=== PATIENT | male | born 1945 | race Caucasian/White ===

== ENCOUNTER → 2023-02-22 13:05 | Outpatient (BNVA) | payer OTHER, SELFPAY | PROVIDERS: Visit Provider Podiatrist Foot & Ankle Surgery | DX: T84.84XA Pain due to internal orthopedic prosthetic devices, implants and grafts, initial encounter; Y79.2 Prosthetic and other implants, materials and accessory orthopedic devices associated with adverse incidents | CPT/HCPCS: 73630; 99204 ==

== ENCOUNTER 2023-03-22 05:38 | Day surgery (SDC) | payer OTHER, SELFPAY ==
[2023-03-22] VITALS (7 sets, daily range): BP systolic 115–168; BP diastolic 76–109; PULSE 72–77; RESP 10–17; TEMP 36.3–36.8; O2SAT 95–97
--- NOTE | 2023-03-22 06:00 | P.HPUD_ITS ---
Surgery/Procedure H&P Update DATE OF PROCEDURE: March 22, 2023 DATE H&P PERFORMED: 02/22/23 H&P UPDATE INFORMATION: I have reviewed H&P completed within last 30 days, I have examined patient prior to procedure, No changes to prior documentation and H&P is in [facility] [place] on date indicated CHANGES TO PREVIOUS DOCUMENTATION: None PRIMARY INDICATION FOR PROCEDURE: Painful hardware left foot PLANNED PROCEDURE: Operation Date: 03/22/23 07:00 Proposed Procedures p Deep hardware removal left foot 86733,T84.84XA(Left) - Floyd Ascencio DPM
--- NOTE | 2023-03-22 06:00 | P.OP_ITS ---
Operative Report Date of procedure: March 22, 2023 Pre-op diagnosis: Painful hardware left foot Post-op diagnosis: painful hardware left foot Post-op findings: Prominent hardware with screw head tenting the skin left foot Procedure done: Deep hardware removal left foot. CPT code 08564 Implants: 4-0 nylon Specimens removed/disposition: 1 screw, will be disposed of. Pathology: None Surgeon: Floyd Ascencio DPM Stock Letterer: Mikaela Estimated blood loss: 2 mL 2 IV fluids: 0 Urine output: 0 Complications: None Findings: Prominent hardware, head of screw had backed out and is tenting the skin at the left medial foot at first metatarsal phalangeal joint arthrodesis site. No failed hardware appreciated. Brief History: Pleasant 78-year-old male presents with prominent screw head at the left foot, he has other hardware that is asymptomatic and is only interested in having the problematic screw removed, this is visibly tenting his skin, causes pain with everyday activities and any type of shoe gear he tries to wear. I reviewed at length with the patient, the risks, potential complications, benefits, alternatives, expectations, and typical outcomes associated with the surgery. The risks and potential complications were explained in detail, including but not limited to infection, wound dehiscence or soft tissue complications, bleeding and hematoma, chronic edema, neuritis or nerve damage producing numbness or chronic pain, CRPS, failure to relieve pain or worsening pain, thick / painful / unsightly scar, limited motion / stiffness, malposition, delayed union, malunion, or nonunion, fracture, reaction to implants, anesthetic complications, venous thromboembolism, and deformity recurrence. I discussed the notion of no regrets with the patient as it pertains to complications and outcomes. The patient seemed to understand the nature of the proposed care and required convalescence. They asked appropriate questions, answered to their satisfaction. They are aware no guarantees can be made as to a satisfactory outcome and they understand there may be other possible unforeseen complications or outcomes not listed here that will be treated accordingly if they arise. There were no written or implied guarantees given to the patient. They gave informed consent to proceed. Procedure: Under mild sedation the patient was brought to the operating room and remained on the gurney in supine position. A timeout was performed. Anesthesia was then administered by the anesthesia service. Local anesthesia was injected by myself consisting of 20 cc of 0.5% Marcaine plain in a left male block fashion. Additional 20 cc of Exparel injected subcutaneously at the medial left forefoot in a grid like fashion per expeditionary fighting vehicle crewman recommendation and technique. Well- padded pneumatic tourniquet applied to the left ankle. The left lower extremity was scrubbed, prepped and draped utilizing normal aseptic technique. Left foot was exanguinated with an Esmarch bandage and tourniquet inflated to 250 mmHg. Attention was was directed to the left foot where medial to the first metatarsal head and proximal to the first metatarsal head tenting of the skin was appreciated from a prominent hardware prominent hardware. Incision with a 15 blade directly over the prominence was performed through skin with dissection carried down through subcutaneous tissue to the layer of myofascial and bone utilizing blunt and sharp technique. Care was taken to retract and preserve neurovascular and tendinous structures. All bleeders were ligated and cauterized as necessary. Prominent screw was encountered and backed out in total without failure and passed from the operative field. The incision was ir rigated with copious amounts of sterile skin solution and closed with 4-0 nylon. Incision was dressed with Adaptic, sterile 4 x 4's, Kerlix and Umair wrap, postop shoe was applied to the left foot. Tourniquet was deflated and a prompt hyperemic response was noted to the distal digits of the left foot. Patient tolerated the procedure and anesthesia well and was transferred to the PACU with vital signs stable and vascular status intact. Following a period of postoperative monitoring he will be discharged home and was given at home care instructions, scheduled follow-up and my cell phone number to contact with any postoperative questions or concerns.
[2023-03-22] MEDS: sodium chloride 0.9% 1,000 ML 30 ML IV (06:18)
--- NOTE | 2023-03-22 06:42 | ANES.PREANE2 ---
Pre-Anesthetic Assessment Height/Weight: Height 1.85 m Weight 95.708 kg Temp Pulse Resp BP Pulse Ox O2 Del Method 97.8 F 77 16 168/109 95 Room Air 03/22/23 05:48 03/22/23 05:48 03/22/23 05:48 03/22/23 05:48 03/22/23 05:48 03/22/23 06:09 Preop Diagnosis: Painful hardware left foot Operation Date: 03/22/23 07:00 Proposed Procedures p Deep hardware removal left foot [id number],T84.84XA(Left) - Floyd Ascencio DPM Familial anesthetic complications: None Was Beta Mrailia taken within 24 hours: N/A Was Clonidine taken within 24 hours: N/A Last intake: Intake Last Liquid Date 03/21/23 Last Liquid Time 22:30 Last Solid Date 03/21/23 Last Solid Time 22:00 Social No alcohol and No tobacco Exam alert, oriented x 3, clear to auscultation bilaterally and regular rate & rhythm Airway Mallampati: Class I Dentition: full Anesthetic Plan ASA status: 2 Anesthesia: MAC Risk of > 500 ml blood loss (7ml/kg in children): No Medications/Allergies Home Medications Medication Instructions Recorded Confirmed Last Taken Type prednisone 5 mg tablet 5 mg PO DAILY 02/22/23 03/22/23 03/21/23 History amoxicillin 500 mg-potassium 1 tab PO BID 03/21/23 03/22/23 03/21/23 History clavulanate 125 mg tablet (Augmentin) hydrocodone 5 mg-acetaminophen 325 1 tab PO Q6H PRN pain 7 days #21 03/21/23 Unknown Rx mg tablet tabs ibuprofen 200 mg tablet 200 mg PO Q6H PRN Pain (Scale 03/22/23 03/22/23 03/20/23 History Score 1-3) Allergies Allergy/AdvReac Type Severity Reaction Status Date / Time No Known Allergies Allergy Verified 03/22/23 05:57 Current Medications Generic Name Dose Route Start Last Admin Trade Name Freq PRN Reason Stop Dose Admin Sodium Chloride 1,000 mls @ 30 mls/hr 03/22/23 06:00 03/22/23 06:18 Sodium Chloride 0.9% IV 03/23/23 05:59 30 mls/hr .Q24H NADIYA Administration PFSH Anesthesia Surgical History (Updated 03/21/23 @ 18:14 by Floyd Ascencio DPM) S/P foot surgery Data Anesthesia Cardiac Studies: No Data to Display
[2023-03-22] MEDS: ceFAZolin 2,000 MG in sodium chloride 0.9% (plus) 50 ML 100 MG IV (06:52)
[2023-03-22] MEDS: BUPivacaine liposome 13.3 mg/mL SDV 10 mL 266 MG INJECTION (07:06)
[2023-03-22] MEDS: BUPivacaine 0.5% INJ 10 mL 20 ML INJECTION (07:07)
[2023-03-22] MEDS: HYDROcodone-acetaminophen 5-325 mg Tablet 1 TAB PO (07:54)
--- NOTE | 2023-03-22 13:35 | ANE.PACU2 ---
Inpatient post-anesthesia follow up: Airway intact: Yes Vital signs: Temperature 98 F Pulse Rate 75 Respiratory Rate 16 Blood Pressure 153/99 Pulse Oximetry 96 Oxygen Delivery Me thod Room Air Oxygen Flow Rate 6 Fraction of Inspir ed Oxygen Hydration adequate: Yes Nausea and vomiting: No Pain level: 1 Mental status: Baseline
== END 2023-03-22 08:26 | disposition home or self-care (01) ==
PROVIDERS: PCP Family Medicine; Visit Provider Podiatrist Foot & Ankle Surgery
PROC: (CPT 20680; principal; 2023-03-22 07:00)
DX: T84.84XA Pain due to internal orthopedic prosthetic devices, implants and grafts, initial encounter (principal)
CPT/HCPCS: 20680; C9290; J0690; J1100; J2704; J3010; J3490; J7030

== ENCOUNTER → 2023-04-04 06:52 | Outpatient (BNVA) | payer OTHER, SELFPAY | PROVIDERS: PCP Family Medicine; Visit Provider Podiatrist Foot & Ankle Surgery | DX: Z98.890 Other specified postprocedural states (principal) | CPT/HCPCS: 99024 ==

== ENCOUNTER → 2023-04-23 07:55 | Outpatient (BNVA) | payer MEDICARE, SELFPAY | PROVIDERS: PCP Family Medicine; Visit Provider Nurse Practitioner Family | DX: T25.221A Burn of second degree of right foot, initial encounter (principal); T24.201A Burn of second degree of unspecified site of right lower limb, except ankle and foot, initial encounter; T24.202A Burn of second degree of unspecified site of left lower limb, except ankle and foot, initial encounter; X10.2XXA Contact with fats and cooking oils, initial encounter; I96 Gangrene, not elsewhere classified | CPT/HCPCS: 97597; 97598; 99213; A6212 ==

== ENCOUNTER 2023-04-30 11:45 | Outpatient (CLI) | payer OTHER, MEDICARE, SELFPAY ==
--- NOTE | 2023-04-30 11:50 | USCV_ITS ---
Frederick Bee Age: 78 Gender: M : 1945 Exam Date: 04/30/2023 12:01 Ordering Phys: Ugo Tan Technologist: CT Exam Location: [facility] [place]_ Indication: CAD BP: 155 / 87 HR: 69 Rhythm: Sinus Technical Quality: Adequate MEASUREMENTS (Male / Female) Normal Values 2D ECHO LVOT Diameter 2.3 cm LV Ejection Fraction MOD 2C 40.3 % LV Ejection Fraction 2C AL 41.1 % LA Diameter 4.0 cm Aorta at Sinotubular Diameter 3.1 cm M-MODE Aortic Annulus Diameter 3.6 cm LA Ao Ratio MM 1.2 MV E Point Septal Separation 0.6 cm DOPPLER AV Peak Velocity 103.0 cm/s LVOT Peak Velocity 81.0 cm/s AV Area Cont Eq vti 4.8 cm squared AV Area Cont Eq pk 3.4 cm squared MV E' Velocity 8.0 cm/s TR Peak Velocity 162.7 cm/s TR Peak Gradient 10.6 mmHg TV Peak E Velocity 72.0 cm/s Right Atrial Pressure 3.0 mmHg Pulmonary Artery Systolic Pressu 13.6 mmHg PV Peak Velocity 99.0 cm/s FINDINGS Left Ventricle Left ventricle is normal in size. LV systolic function is mildly reduced with EF of 45 to 50%. Mild global hypokinesis. Grade 1 diastolic dysfunction Right Ventricle Normal in size and function Right Atrium Normal in size Left Atrium Dilated Mitral Valve Structurally normal mitral valve. Mild mitral regurgitation. Aortic Valve Aortic valve is thickened. No significant stenosis or regurgitation seen. Tricuspid Valve Mild tricuspid regurgitation. Pulmonary artery systolic pressure is normal. Pulmonic Valve Not well visualized. Mild pulmonic regurgitation. Pericardium Normal Aorta Normal in size IVC Appears to be normal CONCLUSIONS LV systolic function is mildly reduced with EF of 45 to 50%. Grade 1 diastolic dysfunction. Left atrial dilation. Mild mitral regurgitation. Mild tricuspid regurgitation Mild pulmonic regurgitation No comparison studies are available. Mikael Barragan MD (Electronically Signed) Final Date: 15 May 2023 17:11 S
== END 2023-04-30 11:46 | disposition home or self-care (01) ==
LOC: RAD 11:46
PROVIDERS: PCP Family Medicine; Visit Provider Chiropractor
DX: I25.10 Atherosclerotic heart disease of native coronary artery without angina pectoris (principal); I25.9 Chronic ischemic heart disease, unspecified; I08.8 Other rheumatic multiple valve diseases; I96 Gangrene, not elsewhere classified; T25.221D Burn of second degree of right foot, subsequent encounter; T24.201D Burn of second degree of unspecified site of right lower limb, except ankle and foot, subsequent encounter; X10.2XXD Contact with fats and cooking oils, subsequent encounter
CPT/HCPCS: 93306; 97597; 97598; A6220

== ENCOUNTER → 2023-05-07 08:27 | Outpatient (BNVA) | payer MEDICARE, SELFPAY | PROVIDERS: PCP Family Medicine; Visit Provider Nurse Practitioner Family | DX: I96 Gangrene, not elsewhere classified (principal); T25.221D Burn of second degree of right foot, subsequent encounter; X10.2XXD Contact with fats and cooking oils, subsequent encounter; Z09 Encounter for follow-up examination after completed treatment for conditions other than malignant neoplasm | CPT/HCPCS: 11042 ==

== ENCOUNTER → 2023-05-08 11:30 | Outpatient (BNVA) | payer MEDICARE, SELFPAY | PROVIDERS: PCP Family Medicine; Referring Provider Family Medicine; Visit Provider Internal Medicine | DX: M81.0 Age-related osteoporosis without current pathological fracture (principal); E55.9 Vitamin D deficiency, unspecified | CPT/HCPCS: 99204 ==

== ENCOUNTER → 2023-05-14 08:47 | Outpatient (BNVA) | payer MEDICARE, SELFPAY | PROVIDERS: PCP Family Medicine; Visit Provider Nurse Practitioner Family | DX: Z09 Encounter for follow-up examination after completed treatment for conditions other than malignant neoplasm (principal); Z87.2 Personal history of diseases of the skin and subcutaneous tissue | CPT/HCPCS: 99212; A6219 ==

== ENCOUNTER 2023-06-10 08:43 | Oncology outpatient (recurring) (ONCR) | payer MEDICARE, SELFPAY ==
[2023-06-10 09:18] VITALS: BP 132/87; PULSE 79; RESP 18; TEMP 36.6; O2SAT 96
[2023-06-10] MEDS: denosumab 60 mg SDV SUBCUT (09:21)
[2023-06-10 09:51] LABS: Albumin Level 3.8 g/dL (3.5-5.2); Calcium 8.9 mg/dL (8.5-10.5)
[2023-06-10 17:49] LABS: 25 Hydroxy Vitamin D 27 ng/mL (30-100)
== END 2023-06-20 23:59 | disposition home or self-care (01) ==
PROVIDERS: Internal Medicine; PCP Family Medicine; Visit Provider Family Medicine
DX: M81.0 Age-related osteoporosis without current pathological fracture (principal); Z53.9 Procedure and treatment not carried out, unspecified reason
CPT/HCPCS: 36415; 82040; 82306; 82310; 82565; 96372; J0897

== ENCOUNTER → 2023-09-17 09:49 | Outpatient (BNVA) | payer OTHER, SELFPAY | PROVIDERS: PCP Family Medicine; Visit Provider Internal Medicine Rheumatology | DX: Z79.899 Other long term (current) drug therapy (principal); M06.9 Rheumatoid arthritis, unspecified; M19.041 Primary osteoarthritis, right hand; M05.79 Rheumatoid arthritis with rheumatoid factor of multiple sites without organ or systems involvement | CPT/HCPCS: 73130; 99204 ==

== ENCOUNTER → 2023-11-05 12:27 | Outpatient (BNVA) | payer OTHER, SELFPAY | PROVIDERS: PCP Family Medicine; Visit Provider Internal Medicine | DX: M81.0 Age-related osteoporosis without current pathological fracture (principal); E55.9 Vitamin D deficiency, unspecified | CPT/HCPCS: 80053; 82306; 99214 ==

== ENCOUNTER 2023-12-10 09:43 | Oncology outpatient (recurring) (ONCR) | payer OTHER, SELFPAY ==
[2023-12-10 10:38] VITALS: BP 176/99; PULSE 81; RESP 16; TEMP 36.4; O2SAT 98
[2023-12-10] MEDS: sodium chloride 0.9% 250 ML 75 ML IV (11:19)
[2023-12-10] MEDS: acetaminophen 325 mg Tablet 650 MG PO (11:21)
[2023-12-10] MEDS: methylPREDNISolone sod succ 125 mg/2 mL INJ IVP (11:21)
[2023-12-10 12:00] VITALS: BP 165/98; PULSE 77; RESP 16; TEMP 36.4; O2SAT 98
[2023-12-10] MEDS: rituximab-abbs 1,000 MG in sodium chloride 0.9% 500 ML 70 MG IV (12:00)
[2023-12-10 12:30] VITALS: BP 160/90; PULSE 70; RESP 16; TEMP 36.6; O2SAT 97
[2023-12-10 13:00] VITALS: BP 162/92; PULSE 76; RESP 16; TEMP 36.4; O2SAT 94
[2023-12-10 13:30] VITALS: BP 157/87; PULSE 85; RESP 16; TEMP 36.4; O2SAT 95
[2023-12-10] MEDS: denosumab 60 mg SDV SUBCUT (15:20)
[2023-12-10 15:25] VITALS: BP 169/99; PULSE 85; RESP 16; TEMP 36.4; O2SAT 94
== END 2023-12-10 23:59 | disposition home or self-care (01) ==
PROVIDERS: PCP Family Medicine; Visit Provider Family Medicine
DX: M05.89 Other rheumatoid arthritis with rheumatoid factor of multiple sites (principal); Z79.899 Other long term (current) drug therapy; M81.0 Age-related osteoporosis without current pathological fracture
CPT/HCPCS: 96372; 96375; 96413; 96415; J0897; J2919; J7040; J7050; Q5115

== ENCOUNTER 2023-12-25 07:59 | Oncology outpatient (recurring) (ONCR) | payer OTHER, SELFPAY ==
[2023-12-25 08:12] VITALS: BP 148/85; PULSE 92; RESP 18; TEMP 36.3; O2SAT 93
[2023-12-25] MEDS: acetaminophen 325 mg Tablet 650 MG PO (08:50)
[2023-12-25] MEDS: diphenhydrAMINE 50 mg/mL SDV 1mL 25 MG IVP (08:52)
[2023-12-25] MEDS: sodium chloride 0.9% 250 ML 75 ML IV (08:54)
[2023-12-25] MEDS: methylPREDNISolone sod succ 125 mg/2 mL INJ IVP (08:54)
[2023-12-25] MEDS: rituximab-abbs 1,000 MG in sodium chloride 0.9% 500 ML 200 MG IV (09:13)
[2023-12-25 09:37] LABS: Basophils # 0.1 10^3/uL (0.0-0.1); Eosinophils # 0.4 10^3/uL (0.0-0.8); Lymphocytes # 1.9 10^3/uL (0.8-4.8); Lymphocytes % 38.5 %; Mean Corpuscular Volume 90.6 fl (82-101); Mean Platelet Volume 10.2 fL (7.4-10.4); Monocytes # 0.7 10^3/uL (0.2-0.9); Neutrophils # 1.91 10^3/uL (1.8-7.7); Neutrophils % 38.3 %; Nucleated Red Blood Cells % 0 %; Platelet Count 227 10^3/cmm (157-399); Red Blood Count 5.41 10^6/uL (3.85-5.65); Red Cell Distribution Width 13.4 % (12.1-15.1); White Blood Count 4.99 10^3/uL (3.29-11.43)
[2023-12-25 09:40] LABS: Erythrocyte Sedimentation Rate 33 mm/hr (0-10)
[2023-12-25 09:50] VITALS: BP 148/89; PULSE 74; RESP 18; TEMP 36.8; O2SAT 97
[2023-12-25 09:54] LABS: Alanine Aminotransferase 20 U/L (0-41); Albumin Level 3.8 g/dL (3.5-5.2); Alkaline Phosphatase 83 U/L (40-130); C Reactive Protein 17.7 mg/L (0.0-4.9); Globulin 2.9 g/dL (1.3-4.6); Total Bilirubin 0.5 mg/dL (0.15-1.2); Total Protein 6.7 g/dL (6.6-8.7)
[2023-12-25 09:56] LABS: Aspartate Amino Transferase 30 U/L (0-40)
[2023-12-25 10:20] VITALS: BP 160/85; PULSE 94; RESP 18; TEMP 36.6; O2SAT 96
[2023-12-25 10:50] VITALS: BP 138/89; PULSE 71; RESP 18; TEMP 36.6; O2SAT 95
[2023-12-25 13:05] VITALS: BP 164/87; PULSE 87; RESP 18; TEMP 36.4; O2SAT 94
== END 2023-12-25 23:59 | disposition home or self-care (01) ==
PROVIDERS: Internal Medicine Rheumatology; PCP Family Medicine; Visit Provider Family Medicine
DX: M05.79 Rheumatoid arthritis with rheumatoid factor of multiple sites without organ or systems involvement; Z79.899 Other long term (current) drug therapy
CPT/HCPCS: 80076; 82565; 85025; 85651; 86140; 96375; 96413; 96415; J1200; J2919; J7040; J7050; Q5115

== ENCOUNTER → 2024-01-22 11:16 | Outpatient (BNVA) | payer OTHER, SELFPAY | PROVIDERS: PCP Family Medicine; Visit Provider Internal Medicine Rheumatology | DX: M05.79 Rheumatoid arthritis with rheumatoid factor of multiple sites without organ or systems involvement (principal); Z79.899 Other long term (current) drug therapy; Z71.85 Encounter for immunization safety counseling; Z11.1 Encounter for screening for respiratory tuberculosis; Z11.59 Encounter for screening for other viral diseases | CPT/HCPCS: 99214 ==

== ENCOUNTER 2024-04-23 11:45 | Outpatient (CLI) | payer OTHER, SELFPAY ==
[2024-04-23 11:49] VITALS: BMI 29.2
--- NOTE | 2024-04-23 11:50 | ECG_ITS ---
[facility]: 2024-[facility]23 Pat Name: Frederick Bee Department: Room: Gender: Male Design Supervisor: : 1945 Requested By: HOOD Smith Order Number: [id number] Kaushal MD: LU CROOKS Interpretive Statements Lung unchanged pre/post procedure; Intraprocedure shortess of breath; Symptoms resoled by discharge EXERCISE DATA: The patient was exercised by [place] protocol. Baseline heart rate was 84 beats per minute. Baseline blood pressure was 143/103 millimeters of mercury. Target heart rate was 143 beats per minute. Maximum heart rate achieved was 123 which was 86% of the target heart rate. Maximum blood pressure was 174/112 millimeters of mercury. Total exercise time was 3 minutes 44 seconds maximum METs achieved was 7.0 maximum VO2 was 24.5 the reason for ending the test was [completion of the protocol]. The patient complained of shortness of breath during the stress test, which then resolved at the end of the test. ELECTROCARDIOGRAM: BASELINE: Showed sinus rhythm, left axis, frequent PVCs no significant ST-T changes at the baseline noted. EXERCISE: At the peak exercise level, No significant ST-T changes suggestive of ischemia noted. Frequent PVCs were noted RECOVERY: During the recovery period, heart rate dropped appropriately. No significant ST-T changes in the recovery suggestive of ischemia noted. CONCLUSION: 1. Exercise capacity poor. 2. Heart rate response was tachycardic 3. Blood pressure response was [appropriate]. 4. Symptoms not suggestive of ischemia. 5. Electrocardiogram portion of the stress test was not suggestive of ischemia. 6. Please note that due to poor exercise tolerance and and her achievements of METs specificity and sensitivity of the EKG portion of stress test will be low. Electronically Signed On 04-27-2024 21:45:40 INSTRUCTOR OF SPANISH by LU CROOKS [email or web address]
[2024-04-23 12:22] VITALS: BP 166/73; PULSE 94
== END 2024-04-23 11:46 | disposition home or self-care (01) ==
LOC: CDL 11:46
PROVIDERS: PCP Family Medicine; Visit Provider Nurse Practitioner Family
DX: R06.02 Shortness of breath (principal)
CPT/HCPCS: 93017

== ENCOUNTER → 2024-05-28 12:53 | Outpatient (BNVA) | payer MEDICARE, SELFPAY | PROVIDERS: PCP Family Medicine; Visit Provider Internal Medicine | DX: E55.9 Vitamin D deficiency, unspecified (principal); E11.9 Type 2 diabetes mellitus without complications | CPT/HCPCS: 80053; 82306 ==

== ENCOUNTER 2024-06-09 06:59 | Oncology outpatient (recurring) (ONCR) | payer MEDICARE, SELFPAY ==
[2024-06-09 07:19] VITALS: BP 153/89; PULSE 76; TEMP 36.2
[2024-06-09] MEDS: sodium chloride 0.9% 250 ML 75 ML IV (07:30)
[2024-06-09] MEDS: acetaminophen 325 mg Tablet 650 MG PO (07:30)
[2024-06-09] MEDS: methylPREDNISolone sod succ 125 mg/2 mL INJ IVP (07:35)
[2024-06-09] MEDS: diphenhydrAMINE 50 mg/mL SDV 1mL 25 MG IVP (07:35)
[2024-06-09] MEDS: rituximab-abbs 1,000 MG in sodium chloride 0.9% 500 ML 65 MG IV (08:10)
[2024-06-09 08:24] LABS: Basophils % 0.6 %; Eosinophils # 0.3 10^3/uL (0.0-0.8); Eosinophils % 5.2 %; Hematocrit 47.4 % (37-53); Lymphocytes # 2.3 10^3/uL (0.8-4.8); Lymphocytes % 34.6 %; Mean Corpuscular HGB Conc 32.3 g/dL (30-55); Mean Corpuscular Hemoglobin 28.8 pg (27-33); Mean Corpuscular Volume 89.1 fl (82-101); Mean Platelet Volume 9.6 fL (7.4-10.4); Monocytes # 0.9 10^3/uL (0.2-0.9); Monocytes % 13.1 %; Neutrophils # 3.03 10^3/uL (1.8-7.7); Neutrophils % 46.3 %; Nucleated Red Blood Cells % 0 %; Platelet Count 185 10^3/cmm (157-399); Red Blood Count 5.32 10^6/uL (3.85-5.65); Red Cell Distribution Width 14.5 % (12.1-15.1); White Blood Count 6.54 10^3/uL (3.29-11.43)
[2024-06-09 09:15] VITALS: BP 153/89; PULSE 76; RESP 16; TEMP 36.6; O2SAT 96
[2024-06-09 09:45] VITALS: BP 165/87; PULSE 71; RESP 16; TEMP 36.3; O2SAT 96
[2024-06-09 09:45] LABS: Erythrocyte Sedimentation Rate 13 mm/hr (0-10)
[2024-06-09 11:20] VITALS: BP 160/86; PULSE 73; RESP 16; TEMP 36.4; O2SAT 95
== END 2024-06-19 23:59 | disposition home or self-care (01) ==
PROVIDERS: Internal Medicine Rheumatology; PCP Family Medicine; Visit Provider Internal Medicine
DX: M05.89 Other rheumatoid arthritis with rheumatoid factor of multiple sites (principal); Z79.899 Other long term (current) drug therapy
CPT/HCPCS: 85025; 85651; 96375; 96413; 96415; J1200; J2919; J7040; J7050; Q5115

== ENCOUNTER 2024-06-23 07:27 | Oncology outpatient (recurring) (ONCR) | payer OTHER, SELFPAY ==
[2024-06-23 08:02] VITALS: BP 143/84; PULSE 86; RESP 17; TEMP 36.7; O2SAT 94
[2024-06-23] MEDS: sodium chloride 0.9% 250 ML 75 ML IV (08:37)
[2024-06-23] MEDS: acetaminophen 325 mg Tablet 650 MG PO (08:38)
[2024-06-23] MEDS: diphenhydrAMINE 50 mg/mL SDV 1mL 25 MG IVP (08:42)
[2024-06-23] MEDS: methylPREDNISolone sod succ 125 mg/2 mL INJ IVP (08:46)
[2024-06-23] MEDS: rituximab-pvvr 1,000 MG in sodium chloride 0.9% 500 ML 65 MG IV (09:28)
[2024-06-23 10:05] VITALS: BP 178/88; PULSE 73; RESP 18; TEMP 36.6; O2SAT 95
[2024-06-23 10:35] VITALS: BP 173/80; PULSE 86; RESP 18; TEMP 37; O2SAT 95
[2024-06-23 11:10] VITALS: BP 185/100; PULSE 86; RESP 18; TEMP 37.1; O2SAT 96
[2024-06-23 13:00] VITALS: BP 178/96; PULSE 86; RESP 18; TEMP 36.6; O2SAT 96
== END 2024-07-20 23:59 | disposition home or self-care (01) ==
PROVIDERS: PCP Family Medicine; Visit Provider Internal Medicine
DX: M05.89 Other rheumatoid arthritis with rheumatoid factor of multiple sites (principal); Z79.899 Other long term (current) drug therapy
CPT/HCPCS: 96375; 96413; 96417; J1200; J2919; J7040; J7050; J9999; Q5119

== ENCOUNTER → 2024-07-22 11:00 | Outpatient (BNVA) | payer OTHER, SELFPAY | PROVIDERS: PCP Family Medicine; Visit Provider Internal Medicine Rheumatology | DX: M05.79 Rheumatoid arthritis with rheumatoid factor of multiple sites without organ or systems involvement (principal); Z79.899 Other long term (current) drug therapy; Z71.85 Encounter for immunization safety counseling | CPT/HCPCS: 99214 ==

== ENCOUNTER 2024-09-11 08:48 | Oncology outpatient (recurring) (ONCR) | payer MEDICARE, SELFPAY ==
[2024-09-11] MEDS: denosumab 60 mg SDV SUBCUT (09:20)
[2024-09-11 09:49] VITALS: BP 148/80; PULSE 87; RESP 18; TEMP 36.3; O2SAT 93
== END 2024-09-19 23:59 | disposition home or self-care (01) ==
LOC: ONCMED 08:48
PROVIDERS: PCP Family Medicine; Visit Provider Internal Medicine
DX: M05.89 Other rheumatoid arthritis with rheumatoid factor of multiple sites (principal); Z79.899 Other long term (current) drug therapy
CPT/HCPCS: 96372; J0897

== ENCOUNTER 2024-09-29 08:18 | Outpatient (CLI) | payer OTHER, SELFPAY ==
--- NOTE | 2024-09-29 08:24 | CT_ITS ---
WS: [id number] CT chest w con* [id number] HISTORY: PULMONARY NODULE R UPPER LOBE TECHNIQUE: Axial imaging performed through the thorax. Coronal and sagittal reformats are submitted. All CT scans at [facility] use at least one of these dose optimization techniques: automated exposure control; mA and/or kV adjustment per patient size (includes targeted exams where dose is matched to clinical indication); or iterative reconstruction. CONTRAST: Omnipaque 350; 100 mL IV. DLP: 491.44 mGy.cm COMPARISON: None available. Lungs and central airway: Lung volumes are decreased. Moderate changes of pulmonary fibrosis. There is honeycombing and traction bronchiectasis, multilobar and bilateral. No identifiable nodule is noted in the RIGHT upper lobe as indicated by the history. No prior studies available for comparison. No endobronchial lesions. Pleura: Normal. No pleural effusion. Heart and pericardium: Normal size heart with no pericardial effusion. Mediastinum and odessa: No mediastinum or hilar adenopathy. Mild circumferential esophageal wall thickening. Vessels: Mild atherosclerosis aorta. Pulmonary artery is slightly enlarged. Chest wall and lower neck: No soft tissue masses. Upper abdomen: Hepatic flexure is superimposed between the liver and the diaphragm. Small hiatal hernia. Osseous structures: Mild anterior wedging of T7. CT/CT chest w con* [id number] IMPRESSION: 1. No prior studies available for comparison. No report indicating the locatio n of the RIGHT upper lobe pulmonary nodule or size. 2. Decreased lung volumes with changes of UIP. No nodule or mass identified. 3. No mediastinal or hilar pathologically enlarged lymph nodes. 4. Atherosclerosis aorta.
[2024-09-29] MEDS: iohexol 350 mg/mL 500 mL Btl (per mL) IV (08:49)
== END 2024-09-29 08:19 | disposition home or self-care (01) ==
PROVIDERS: PCP Family Medicine; Visit Provider Family Medicine
DX: Z01.89 Encounter for other specified special examinations (principal); R91.8 Other nonspecific abnormal finding of lung field; I70.0 Atherosclerosis of aorta; J84.10 Pulmonary fibrosis, unspecified; J47.9 Bronchiectasis, uncomplicated; R93.89 Abnormal findings on diagnostic imaging of other specified body structures; K44.9 Diaphragmatic hernia without obstruction or gangrene; M48.54XA Collapsed vertebra, not elsewhere classified, thoracic region, initial encounter for fracture
CPT/HCPCS: 71260

== ENCOUNTER → 2024-10-12 09:30 | Outpatient (BNVA) | payer OTHER, SELFPAY | PROVIDERS: PCP Family Medicine; Visit Provider Podiatrist Foot & Ankle Surgery | DX: Q82.8 Other specified congenital malformations of skin (principal); L60.3 Nail dystrophy | CPT/HCPCS: 17110; 99213 ==

== ENCOUNTER 2024-11-24 08:04 | Oncology outpatient (recurring) (ONCR) | payer OTHER, SELFPAY ==
[2024-11-24] MEDS: denosumab 60 mg SDV SUBCUT (08:50)
--- NOTE | 2024-11-24 08:53 | PC.NURSE ---
Patient was scheduled for Rituximab but wanted to reschedule next month due to other appointments.mm
== END 2024-12-20 23:59 | disposition home or self-care (01) ==
PROVIDERS: PCP Family Medicine; Visit Provider Internal Medicine
DX: M05.89 Other rheumatoid arthritis with rheumatoid factor of multiple sites (principal); Z79.899 Other long term (current) drug therapy
CPT/HCPCS: 96372; J0897

== ENCOUNTER 2024-12-01 15:06 | Outpatient (CLI) | payer MEDICARE, SELFPAY ==
--- NOTE | 2024-12-01 15:30 | XR_ITS ---
WS: [id number] SCREENING DEXA SCAN i'mma CLINICAL INFORMATION: Osteoporosis COMPARISON: None. FINDINGS: The L1-L4 bone mineral density measures 1.289 g/cm2. This corresponds to a T score score of 0.6 and Z score of 0.6. Left forearm bone mineral density measures 0.75. This corresponds to a T score of -2.5 and Z score of -1.3. XR/XR DEXA axial skeleton* [id number] IMPRESSION: Normal bone mineralization lumbar spine. Osteoporosis LEFT forearm
== END 2024-12-01 15:07 | disposition home or self-care (01) ==
LOC: RAD 15:07
PROVIDERS: PCP Family Medicine; Visit Provider Internal Medicine
DX: Z13.820 Encounter for screening for osteoporosis (principal); M81.0 Age-related osteoporosis without current pathological fracture; E55.9 Vitamin D deficiency, unspecified
CPT/HCPCS: 77080

== ENCOUNTER → 2024-12-14 09:23 | Outpatient (BNVA) | payer OTHER, SELFPAY | PROVIDERS: PCP Family Medicine; Visit Provider Podiatrist Foot & Ankle Surgery | DX: L84 Corns and callosities (principal); Q82.8 Other specified congenital malformations of skin; L60.3 Nail dystrophy | CPT/HCPCS: 17110 ==

== ENCOUNTER → 2025-01-13 10:02 | Outpatient (BNVA) | payer OTHER, SELFPAY | PROVIDERS: PCP Family Medicine; Visit Provider Internal Medicine Rheumatology | DX: M05.79 Rheumatoid arthritis with rheumatoid factor of multiple sites without organ or systems involvement (principal); Z79.899 Other long term (current) drug therapy; Z71.85 Encounter for immunization safety counseling; M81.0 Age-related osteoporosis without current pathological fracture | CPT/HCPCS: 99214 ==

== ENCOUNTER → 2025-03-08 10:00 | Outpatient (BNVA) | payer OTHER, SELFPAY | PROVIDERS: PCP Family Medicine; Visit Provider Podiatrist Foot & Ankle Surgery | DX: Q82.8 Other specified congenital malformations of skin (principal); L84 Corns and callosities; L60.3 Nail dystrophy | CPT/HCPCS: 17110; 99213 ==

== ENCOUNTER 2025-03-25 13:50 | Emergency (ER) | payer OTHER, SELFPAY ==
[2025-03-25 13:52] VITALS: BP 192/105; PULSE 94; RESP 18; TEMP 36.6; O2SAT 91; BMI 28.7
--- NOTE | 2025-03-25 14:28 | CT_ITS ---
WS: [id number] CT HEAD TECHNIQUE: Noncontrast CT of the head obtained from the skullbase to the vertex. CLINICAL INFORMATION: Closed head injury nausea dizziness COMPARISON: None. DLP: 1066.[address] scans at [facility] use at least one of these dose optimization techniques: automated exposure control; mA and/or kV adjustment per patient size (includes targeted exams where dose is matched to clinical indication); or iterative reconstruction. FINDINGS: No evidence of intracranial hemorrhage or mass effect. Ventricular system and basal cisterns are patent. Moderate small vessel changes with moderate parenchymal volume loss. No extra-axial fluid collections. No evidence of mass or mass effect. Vascular calcification. Mild mucosal thickening in the paranasal sinuses. Mastoid air cells are well aerated. CT/CT head wo con* [id number] IMPRESSION: 1. No evidence of intracranial hemorrhage or mass effect. 2. Intracranial vascular calcification. 3. No acute intracranial findings.
--- NOTE | 2025-03-25 14:55 | XR_ITS ---
WS: [id number] Exam: XR sacrum coccyx min 2V [id number] Date/Time of Exam: 03/25/2025 3:02 PM Reason For Exam: Trauma No obvious acute fracture of the sacrum or coccyx. Marked osteopenia. LEFT hip prosthesis noted. Healed fracture of the proximal RIGHT femur with partially visualized hardware. XR/XR sacrum coccyx min 2V [id number] IMPRESSION: 1. No acute fracture identified.
--- NOTE | 2025-03-25 14:55 | ED_ITS ---
HPI - Head Injury General: Chief complaint: Head Injury Stated complaint: Fall 4ft (2xdays) Time Seen by Provider: 03/25/25 14:20 History of Present Illness: 80-year-old male presents to the emergen cy room had a fall who estimates approximately 4 feet hit the right side of his head when he fell this was at home he had stumbled while on some stairs. There was no loss of consciousness. He fell on his buttocks first and sideways and hit his head. He has not had any vomiting. He feels like he is a little bit unsteady since the fall. Denies neck pain. Associated symptoms: Deny neck pain Related Data Home Medications ?Medication ?Instructions ?Recorded ?Confirmed cholecalciferol (vitamin D3) 25 25 mcg PO DAILY 03/25/25 mcg (1,000 unit) capsule calcium carbonate (Tums) 200 mg PO BID 01/13/2503/25 acetaminophen 500 mg tablet 500 mg PO Q6H PRN Pain 08/1403/25/25 Previous Rx's ?Medication ?Instructions ?Recorded prednisone 2.5 mg tablet 2.5 mg PO QDAY #90 tabs 12/22 08/14 Allergies Allergy/AdvReac Type Severity Reaction Status Date / Time No Known Allergies Allergy Verified 03/25/25 13:57 Review of Systems Const: Denies: fever(s) or chills Card: Denies: chest pain Resp: Denies: dyspnea GI: Denies: abdominal pain : Denies: dysuria, urinary frequency or urinary urgency Musc: Denies: neck pain or back pain Skin/Breast: Denies: rash PFSH ED PFSH: Medical History Immunization counseling High risk medication use Seropositive rheumatoid arthritis of multiple sites Age related osteoporosis Atherosclerotic heart disease of [place] coronary artery without angina pectoris Gastro-esophageal reflux disease without esophagitis Hypertension Surgical History S/P foot surgery Family History Other Diabetes Hypertension Social History Smoking and tobacco/nicotine status: unknown if used tobacco/nicotine Alcohol intake: current Alcohol intake frequency: holidays/special occasions only Physical Exam Const: GENERAL APPEARANCE: cooperative ORIENTATION/CONSCIOUSNESS: Yes awake, Yes oriented to person, Yes oriented to place and Yes oriented to time HENMT: COMMON NORMALS: normocephalic, atraumatic and hearing grossly normal bilaterally HEAD & SCALP: normocephalic and atraumatic Neck/C-Spine: OTHER: No neck pain patient has no discomfort with rotation or sidebending or flexion or extension no palpable step-offs Resp: COMMON NORMALS: normal respiratory effort, No retractions, No use of accessory muscles and clear to auscultation bilaterally AUSCULTATION: clear to auscultation bilaterally Cardio: COMMON NORMALS: regular rate, regular rhythm and No murmurs present (Cardio) RATE: regular rate RHYTHM: regular rhythm Extremity: COMMON NORMALS: normal to inspection, capillary refill normal, no clubbing, cyanosis or edema, no calf tenderness and no pedal edema Neuro: SENSORIUM/ORIENTATION: Yes oriented to person, Yes oriented to place and Yes oriented to time Skin: COMMON NORMALS: no rashes or lesions noted GENERAL SKIN EXAM: no rashes or lesions noted Course Vital Signs: Vital signs: Vital Signs Temperature 97.8 F 03/25/25 13:52 Pulse Rate 94 03/25/25 13:52 Respiratory Rate 18 03/25/25 13:52 Blood Pressure 192/105 03/25/25 13:52 Pulse Oximetry 91 03/25/25 13:52 Oxygen Delivery Me thod Room Air 03/25/25 13:52 MDM - Head Injury Medcial Decision Making Medical decision making Social determinants: None I reviewed the patient's medical record. I reviewed the patient's current home meds. Alternate historians: None Differential diagnosis: Subdural hematoma subarachnoid hematoma concussion. Lab Review: None Imaging: CT head normal no acute intracranial abnormalities Assessment of risk Level of risk: Moderate Hospitalization considerations: Pending CT may need transfer if has intracranial bleeding Reexamination: Unchanged Assessment and plan: CT head negative. The patient does not have any signs of acute CVA. Clinically cleared C-spine. He also complained of some sacral and coccygeal pain x-ray was negative will discharge patient home have him follow-up with primary care as needed Lab Data Radiology Impressions Head CT 03/25/25 14:28 IMPRESSION: 1. No evidence of intracranial hemorrhage or mass effect. 2. Intracranial vascular calcification. 3. No acute intracranial findings. Sacrum and Coccyx X-Ray 03/25/25 14:55 IMPRESSION: 1. No acute fracture identified. All radiology interpretation(s) finalized by discharge Discharge Plan Discharge Patient Disposition: Home Clinical Impression: Fall, Concussion Condition: Stable Prescriptions: No Action cholecalciferol (vitamin D3) 25 mcg (1,000 unit) capsule 25 mcg PO DAILY calcium carbonate [Tums] 200 mg calcium (500 mg) tablet,chewable 200 mg PO BID prednisone 2.5 mg tablet 2.5 mg PO QDAY Qty: 90 1RF acetaminophen 500 mg Tablet 500 mg PO Q6H PRN (Reason: Pain) Discharge Orders: Discharge ED (Routine); Ordered 03/25/25 Ordered By: Michael Rodgers Referrals: Chichi Mcintosh MD [Primary Care Provider, Family Practice] Discharge Diet: Usual diet Discharge Activity: Increase activity as tolerated Patient Instructions: Opioid Safety, Pain Management, Patient Portal & Paulo Instructions Activity Restrictions/Additional Instructions: Thank you for choosing [facility] for your healthcare needs today. It is very important that you follow up as instructed or that you return to the Emergency Department should you have concerns or if your condition changes or worsens in any way. Emergency department visits are focused on emergent conditions, in some cases you may require further evaluation on an outpatient basis. You were seen in the emergency room with complaints of dizziness and nausea after a fall. CT of your head was negative. X-ray of your tailbone was also negative. Follow-up with your primary care doctor as needed. (Please note that included in your discharge packet is information concerning opioid safety and pain management. This information is given to all patients were discharged from the ER regardless of their discharge diagnosis or the medicines they usually take or are prescribed.) Print Language: Romansh Coding Level of Care Code ED Furniture Manager for Avi Vasquez
== END 2025-03-25 16:47 | disposition home or self-care (01) ==
PROVIDERS: Emergency Provider Family Medicine; PCP Family Medicine
DX: S06.0X0A Concussion without loss of consciousness, initial encounter (principal); W10.9XXA Fall (on) (from) unspecified stairs and steps, initial encounter; I10 Essential (primary) hypertension
CPT/HCPCS: 70450; 72220; 99284